=== PATIENT | male | born 1965 | race Caucasian/White ===

== ENCOUNTER 2019-04-16 08:45 | Day surgery (SDC) | payer OTHER ==
[~2019-04-16] VITALS: Ht 190.5 cm; Wt 102.1 kg
[~2019-04-16 08:45] MED LIST: ADVIL200 M1 PO; DIAZEPAM 10 MG10 M1; HYDROCHLOROTH12.5 M1 PO; KRILL OIL 1,001 EAC1 PO; LOSARTAN POTASS50 MG PO; MELOXICAM15 MG PO; METHYLPREDNISOLO4 M1 PO; PROTONIX 20 MG20 MG PO; VITAMIN B122500 MCG PO
[2019-04-16 09:51] VITALS: BP 132/68
[2019-04-16 11:41] VITALS: BP 132/68
--- NOTE | 2019-04-19 15:47 | EKG ---
[address] [address] ELECTROCARDIOGRAM REPORT Name: ZACHARY GARCIA MELISSA Room #: DEP [facility] MElva#: [id number] Admission: 04/16/19 Attend Phys: Aniket Somers Discharge: 04/16/19 Date of : 69 Report #: [id number] THIS REPORT FOR: //name// [facility] Test Date: 2019-04-16 Test Time: 09:03:10 Pat Name: ZACHARY GARCIA Department: Room: 150 6 Gender: M Editor Publications: hortensia : 1965 Requested By: Aniket Carrion Order Number: [id number] MD: Robert Saldivar Measurements Intervals [place] Rate: 75 P: 32 IN: 169 QRS: 19 QRSD: 100 T: 0 QT: 372 QTc: 416 Interpretive Statements Sinus rhythm No previous ECG available for comparison Electronically Signed On 04-19-2019 15:47:23 EL TEACHER by Robert Saldivar [email or web address] <ELECTRONICALLY SIGNED> By: Robert Saldivar MD 04/19/19 1547 [id number] 09 Robert Saldivar MD /ZAC
--- NOTE | 2019-05-12 12:17 | O ---
[facility] [place] [address] OPERATIVE REPORT Name: ZACHARY GARCIA Room #: DEP [facility] Genesis#: [id number] Admission: 04/16/19 Attend Phys: Aniket Somers Discharge: 04/16/19 Date of : 69 Report #: [id number] THIS REPORT FOR: //name// CC: Aniket Marcos DATE OF SERVICE: 04/16/2019 PREOPERATIVE DIAGNOSES: 1. Right knee pain, meniscus tear, chondromalacia. 2. Left shoulder pain, impingement syndrome/rotator cuff tendinitis. POSTOPERATIVE DIAGNOSES: Right knee medial meniscus tear, lateral meniscus tear, grade 4 chondromalacia of medial compartment, grade 2 chondromalacia of patella and grade 2 chondromalacia of lateral tibial plateau. PROCEDURES PERFORMED: 1. Right knee arthroscopy, partial medial and lateral meniscectomy and tricompartmental chondroplasty. 2. Left shoulder subacromial injection. SURGEON: Aniket Carrion MD SPUN PASTE MACHINE OPERATOR: Leydi Gomez PA-C. ANESTHESIA: General by Dr. Garcia. FLUIDS: 800 mL of crystalloid. TOURNIQUET TIME: Approximately 15 minutes at 300 mmHg. ESTIMATED BLOOD LOSS: Negligible. DESCRIPTION OF PROCEDURE: After proper identification of the patient and operative site in preoperative holding area, the operative site was signed by myself. Prophylactic antibiotics were given. The patient elected for both the shoulder injection as well as the knee arthroscopy. The patient was then brought back to the operative suite after induction of satisfactory general anesthesia per LMA. The right lower extremity was evaluated. The knee was ligamentously stable. Range of motion was symmetric compared to the preoperative assessment. The tourniquet was applied to the upper thigh. The limb was placed in an arthroscopic leg winkler. Significant venous varicosities were noted preoperatively and were attempted to be avoided as much as possible with the small arthroscopy portals. Limb was sterilely prepped and draped in usual manner, elevated and exsanguinated with an Esmarch. Tourniquet was inflated to 300 mmHg. Superior medial portal was created for inflow purposes. [address] [address] OPERATIVE REPORT Name: ZACHARY GARCIA [facility] Room #: DEP [facility] Pedro.#: [id number] Admission: 04/16/19 Attend Phys: Aniket Somers Discharge: 04/16/19 Date of : 69 Report #: [id number] Joint was inflated by gravity inflow with normal saline. An anterolateral and then an anteromedial portal were created using a spinal needle for localization. Examination of the suprapatellar pouch, medial and lateral gutters revealed some mild synovitis and spurring off the lateral femoral condyle was noted. Patellofemoral articulation revealed some mild fibrillation along the more inferior aspect of the patella and some spurring was appreciated here where the patellar tendon originated. Condylar surface of the trochlea was intact. Medial compartment of the knee revealed some diffuse grade 4 chondromalacia along the more medial aspect of the medial femoral condyle and medial tibial plateau, complex tear of the posterior horn mid body and mid body of the medial meniscus was noted. Combination of hand and motorized instrumentation was used to perform a partial medial meniscectomy. A small amount of loose chondral tissue and fibrillation was carefully debrided with motorized shaver. Anterior and posterior cruciate ligaments were intact and stable to probing. Lateral compartment of the knee demonstrated some central tearing of the meniscus that was debrided with a combination of hand and motorized instrumentation. Some very mild fibrillation was noted along the more medial aspect of the lateral tibial plateau, was extended posteriorly about the intercondylar spine. Remaining meniscus and chondral surfaces were intact and stable. The knee was thoroughly irrigated with normal saline. Pressure over his popliteal Dawson cyst resulted in some fluid evacuation into the joint. The portals were closed with simple nylon stitches and 20 mL of 0.2% Naropin was injected around the skin incision and into the knee joint to aid in postoperative pain control. Sterile compressive dressing was applied. He was awakened and transferred to the recovery room in stable condition. Please also note that prior to transfer to the recovery room, he was rolled onto his right side after the knee dressing had been applied and the subacromial injection with 40 mg of Depo-Medrol and 2 mL of 1% lidocaine was performed. Band-Aid was applied. He was then transferred to the recovery room in stable condition. <ELECTRONICALLY SIGNED> By: Aniket Carrion MD 05/12/19 1217 1116 1145 Aniket Carrion MD /nt
== END 2019-04-16 12:15 | disposition home health service (06) ==
LOC: OR 08:45 → TBA 08:46 → OR 10:58
DX: M25.561 Pain in right knee (principal); S83.231A Complex tear of medial meniscus, current injury, right knee, initial encounter; S83.281A Other tear of lateral meniscus, current injury, right knee, initial encounter; M94.261 Chondromalacia, right knee; M75.42 Impingement syndrome of left shoulder; M75.101 Unspecified rotator cuff tear or rupture of right shoulder, not specified as traumatic; X58.XXXA Exposure to other specified factors, initial encounter; Y93.89 Activity, other specified; Y92.89 Other specified places as the place of occurrence of the external cause; Y99.8 Other external cause status
CPT/HCPCS: 50010; 50101; 50405; 51038; 54170; 56526; 57103; 57180; 62110; 62900; 70005